=== PATIENT | male | born 1980 | race Caucasian/White ===

== ENCOUNTER 2022-03-22 11:01 | Emergency (ER) | payer OTHER ==
[2022-03-22] MEDS ORDERED: BACITRACIN ZINC OINT 1 PACKET TOP STA (12:52)
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
[2022-03-22] MEDS ORDERED: IBUPROFEN 600 MG TABLET PO STA (13:10)
[2022-03-22 13:37] VITALS: BP 150/98
== END 2022-03-22 13:47 | disposition home or self-care (01) ==
LOC: ED 11:01
DX: S50.812A Abrasion of left forearm, initial encounter (principal); V49.9XXA Car occupant (driver) (passenger) injured in unspecified traffic accident, initial encounter; Y99.0 Civilian activity done for income or pay
CPT/HCPCS: 1040M; 99282; A9270